=== PATIENT | male | born 1930 | race Caucasian/White ===

== ENCOUNTER 2017-05-22 13:21 | Emergency (ER) | payer MEDICARE, OTHER ==
--- NOTE | 2017-05-22 15:58 | EDM.PDOC ---
ED HPI GENERAL MEDICAL PROBLEM - General Chief Complaint: Respiratory Problem Stated Complaint: SOB Time Seen by Provider: 05/22/17 15:00 Source of Information: Reports: Patient, Family (Son and daughter in law) - History of Present Illness INITIAL COMMENTS - FREE TEXT/NARRATIVE: Sahil is an 87yo male brought in by his son and [id number], ambulatory for complaints of sensation of shortness of breath. Reports are that he has a sensation that he is SOB, comes on suddenly. This will last seconds to minutes, sometimes an hour then resolve spontaneously. He feels if he puts his hand over his mouth he can "get his air" better. Son reports this is worsening and becoming "compulsive", that his father seems to have a panic type sensation and will then demand to go to the hospital. Patient tells me he does feel a sensation that if he were to burp he may feel relief of this sensation. He denies heartburn or GERD, no hx of PUD. Does admit that he is a worrier. He denies n/v/d, no changes in stool but does admit that stools are dark in color "for a long time now"; no hematochezia noted. Appetite has been down and reportedly poor by family for a few months. Patient denies f/c/s, food tastes the same he just doesn't feel hungry. Family reports a slow downward progression of weakness and immobility, that patient sits on his couch most of his day and seems to have little to no energy. Family has noted slow downward progression with patient's memory also, short term memory is very poor. Patient has been seen for this sensation of SOB on 3 occasions in the past few weeks. Once with PCP, Dr. Flood in [place], once with Dr. Dodd and once by Deloris Venegas PA-C; family reports normal lab and chest xray evaluation. Patient lives at home with his ; family reports "he is a lot of work" for his . Onset: Gradual Duration: Week(s): (3) Location: Reports: Chest, Abdomen Quality: Reports: Other (sensation of SOB and sensation that if he could burp this would resolve) Improves with: Reports: None Worsens with: Reports: None Associated Symptoms: Reports: Loss of Appetite (x 3-4 weeks), Shortness of Breath (sensation), Weakness. Denies: Chest Pain, Cough, Fever/Chills, Headaches, Nausea/Vomiting - Related Data Allergies Allergy/AdvReac Type Severity Reaction Status Date / Time No Known Allergies Allergy Verified 05/22/17 13:37 Home Meds: Home Meds Fexofenadine/Pseudoephedrine [Deborah-D 12 Hour Tablet] 1 tab PO DAILY 05/22/17 [History] Fluticasone Propionate [Flonase] 0 gm NASBOTH DAILY 05/22/17 [History] Umeclidinium Brm/Vilanterol Tr [Anoro Ellipta 62.5-25 MCG] 1 puff IH DAILY 05/22 [History] Social & Family History - Tobacco Use Smoking Status *Q: Never Smoker - Recreational Drug Use Recreational Drug Use: No ED ROS GENERAL - Review of Systems Review Of Systems: See Below Constitutional: Reports: Weakness (reported by family), Fatigue (reported by family), Decreased Appetite (reported by family). Denies: Fever, Chills, Malaise HEENT: Reports: No Symptoms Respiratory: Reports: Shortness of Breath (sensation; O2 sats is 100% on RA). Denies: Wheezing, Pleuritic Chest Pain, Cough, Sputum, Hemoptysis Cardiovascular: Reports: No Symptoms. Denies: Chest Pain, Dyspnea on Exertion, Lightheadedness, Palpitations, Syncope GI/Abdominal: Reports: Abdominal Pain (sensation that if he presses on his abdomen near umbilicus that this SOB sensation resolved; does not really call this abdominal pain). Denies: Constipation, Diarrhea, Nausea : Reports: No Symptoms Musculoskeletal: Denies: Back Pain Neurological: Denies: Confusion, Dizziness, Headache Psychiatric: Reports: Anxiety (? anxiety with regard to ongoing SOB sensation) ED EXAM, GENERAL - Physical Exam Exam: See Below Exam Limited By: No Limitations General Appearance: Alert, WD/WN, No Apparent Distress, Other (Initially patient does not respond to my questioning and family is answering questions; he then becomes more amendable to conversation and joins in, answers all questions appropriately) Eye Exam: Bilateral Eye: EOMI, PERRL Ears: Normal External Exam, Other ([place]) Nose: Normal Inspection Throat/Mouth: Normal Inspection, Normal Lips, Normal Voice, No Airway Compromise Head: Atraumatic, Normocephalic Neck: Normal Inspection Respiratory/Chest: No Respiratory Distress, Lungs Clear, Normal Breath Sounds, No Accessory Muscle Use Cardiovascular: Normal Peripheral Pulses, Regular Rate, Rhythm, No Edema, No Murmur Peripheral Pulses: 2+: Dorsalis Pedis (L), Dorsalis Pedis (R) GI/Abdominal: Normal Bowel Sounds, Soft, Non-Tender, No Organomegaly (Male) Exam: Deferred Rectal (Males) Exam: Deferred Back Exam: Normal Inspection Extremities: Normal Inspection, No Pedal Edema, Normal Capillary Refill Neurological: Alert, Oriented, CN II-XII Intact, Normal Cognition Psychiatric: Normal Affect, Normal Mood Skin Exam: Warm, Dry, Intact Course - Vital Signs Last Recorded V/S: Last Vital Signs Temp 97.4 F 05/22/17 13:31 Pulse 91 05/22/17 13:31 Resp 16 05/22/17 13:31 BP Pulse Ox 100 05/22/17 13:31 - Orders/Labs/Meds Labs: Laboratory Tests 05/22/17 05/22/17 05/22/17 Range/Units 16:10 16:10 16:10 WBC 6.46 (4.23-9.07) K/mm3 RBC 5.11 (4.63-6.08) M/mm3 Hgb 16.1 (13.7-17.5) gm/L Hct 46.6 (40.1-51.0) % MCV 91.2 (79.0-92.2) fl MCH 31.5 (25.7-32.2) pg MCHC 34.5 (32.2-35.5) g/dl RDW Std Deviation 44.8 H (35.1-43.9) fL Plt Count 246 (163-337) K/mm3 MPV 10.6 (9.4-12.3) fl Neut % (Auto) 62.0 (34.0-67.9) % Lymph % (Auto) 25.7 (21.8-53.1) % Barry % (Auto) 10.8 (5.3-12.2) % Eos % (Auto) 0.9 (0.8-7.0) Baso % (Auto) 0.3 (0.1-1.2) % Neut # (Auto) 4.00 (1.78-5.38) K/mm3 Lymph # (Auto) 1.66 (1.32-3.57) K/mm3 Barry # (Auto) 0.70 (0.30-0.82) K/mm3 Eos # (Auto) 0.06 (0.04-0.54) K/mm3 Baso # (Auto) 0.02 (0.01-0.08) K/mm3 D-Dimer, Quantitative 0.40 (0.19-0.59) mg/L Sodium 140 (136-145) mEq/L Potassium 4.0 (3.5-5.1) mEq/L Chloride 105 (98-107) mEq/L Carbon Dioxide 25 (21-32) mEq/L Anion Gap 14.0 (5-15) BUN 19 H (7-18) mg/dL Creatinine 1.2 (0.7-1.3) mg/dL Est Cr Clr Drug Dosing 41.11 mL/min Estimated GFR (MDRD) 57 (>60) mL/min BUN/Creatinine Ratio 15.8 (14-18) Glucose 101 (83-115) mg/dL Calcium 9.6 (8.5-10.1) mg/dL Magnesium 2.0 (1.8-2.4) mg/dl Total Bilirubin 0.9 (0.2-1.0) mg/dL AST 22 (15-37) U/L ALT 23 (16-63) U/L Alkaline Phosphatase 69 (46-116) U/L C-Reactive Protein < 0.2 (<1.0) mg/dL Total Protein 7.2 (6.4-8.2) g/dl Albumin 3.5 (3.4-5.0) g/dl Globulin 3.7 gm/dL Albumin/Globulin Ratio 1.0 (1-2) H. pylori IgG Antibody (NEGATIVE) 05/22/17 Range/Units 16:10 WBC (4.23-9.07) K/mm3 RBC (4.63-6.08) M/mm3 Hgb (13.7-17.5) gm/L Hct (40.1-51.0) % MCV (79.0-92.2) fl MCH (25.7-32.2) pg MCHC (32.2-35.5) g/dl RDW Std Deviation (35.1-43.9) fL Plt Count (163-337) K/mm3 MPV (9.4-12.3) fl Neut % (Auto) (34.0-67.9) % Lymph % (Auto) (21.8-53.1) % Barry % (Auto) (5.3-12.2) % Eos % (Auto) (0.8-7.0) Baso % (Auto) (0.1-1.2) % Neut # (Auto) (1.78-5.38) K/mm3 Lymph # (Auto) (1.32-3.57) K/mm3 Barry # (Auto) (0.30-0.82) K/mm3 Eos # (Auto) (0.04-0.54) K/mm3 Baso # (Auto) (0.01-0.08) K/mm3 D-Dimer, Quantitative (0.19-0.59) mg/L Sodium (136-145) mEq/L Potassium (3.5-5.1) mEq/L Chloride (98-107) mEq/L Carbon Dioxide (21-32) mEq/L Anion Gap (5-15) BUN (7-18) mg/dL Creatinine (0.7-1.3) mg/dL Est Cr Clr Drug Dosing mL/min Estimated GFR (MDRD) (>60) mL/min BUN/Creatinine Ratio (14-18) Glucose (83-115) mg/dL Calcium (8.5-10.1) mg/dL Magnesium (1.8-2.4) mg/dl Total Bilirubin (0.2-1.0) mg/dL AST (15-37) U/L ALT (16-63) U/L Alkaline Phosphatase (46-116) U/L C-Reactive Protein (<1.0) mg/dL Total Protein (6.4-8.2) g/dl Albumin (3.4-5.0) g/dl Globulin gm/dL Albumin/Globulin Ratio (1-2) H. pylori IgG Antibody Positive H (NEGATIVE) Meds: Medications Discontinued Medications Generic Name Dose Route Start Last Admin Trade Name Freq PRN Reason Stop Dose Admin Amoxicillin 1,000 mg 05/22/17 18:06 05/22/17 18:21 Amoxil PO 05/22/17 18:07 1,000 mg ONETIME ONE Administration Clarithromycin 500 mg 05/22/17 18:10 05/22/17 18:21 Biaxin PO 05/22/17 18:11 500 mg NOW STA Administration Pantoprazole Sodium 40 mg 05/22/17 18:03 Protonix Iv IVPUSH 05/22/17 18:04 ONETIME ONE Pantoprazole Sodium 40 mg 05/22/17 18:30 05/22/17 18:21 Protonix PO 40 mg STAT MEET Administration Pantoprazole Sodium Confirm 05/22/17 18:22 05/22/17 18:22 Protonix Administered 05/22/17 18:23 Not Given Dose 40 mg .ROUTE .[facility] - Re-Assessments/Exams Free Text/Narrative Re-Assessment/Exam: 05/22/17 22:00 Labs reviewed with family as noted above; H.Pylori + in serum. Reviewed that I could confirm this with stool but based on his symptoms I would like to treat for h.pylori- family and patient are in agreement. Amoxicillin, clarithromycin and protonix given PO prior to discharge. Will continue these for 10 days--see rx given to patient at [place]. Reviewed CT results with patient and family; gallstones present, no evidence of inflammation or acute concerns, however could further evaluation with PCP as this could potentially cause decreased appetite symptoms. Will defer to PCP. Family was pushing for patient admission. Reviewed with family normal VS, essentially normal labs, no criteria for admission at this time. Offered social work consult here or as outpatient to help family work through process of further evaluation and assistance with needs at home. Recommend he follow up with PCP within a few days of discharge for repeat exam and for family to discuss concerns with PCP in [place]. Family is in agreement. Departure - Departure Time of Disposition: 18:31 Disposition: Home, Self-Care 01 Condition: Fair Clinical Impression: Helicobacter pylori (H. pylori) infection, Anxiety, Gallstones - Discharge Information Instructions: Panic Attacks, [id number], Biliary Colic, Helicobacter Pylori Antibodies Test Referrals: PCP,Not In Area [Primary Care Provider] - Forms: ED Department Discharge Additional Instructions: Take all medications as prescribed -Amoxicillin twice daily x 10 days -Clarithromycin twice daily x 10 days -Omeprazole twice daily x 10 days then once daily for one month Push fluids; bland foods. Discuss anxiety treatment with PCP at follow up visit. Discuss memory loss, recent memory, with PCP at follow up visit. Recommend follow up with PCP within one week of discharge.
--- NOTE | 2017-05-22 17:28 | CT ---
CT chest Technique: Multiple axial sections through the chest were obtained. Intravenous contrast not utilized. Comparison: No prior study. Findings: Mediastinum and hilar regions show no adenopathy or mass. Atherosclerotic calcification is seen within the aorta and branch vessels. No aneurysm is seen within the thoracic aorta. Heart size is is within normal limits. No pericardial thickening is seen. 2 slight nodular densities are noted within the right upper lung measuring around 1 cm in size. Slight parenchymal density within the right lung base is seen most likely due to scarring. Small nodule is noted within the left lung base measuring 3.5 mm. Bone window settings shows scattered degenerative change throughout the spine. Impression: 1. Slight nodular densities within the chest. Given the patient's age these are likely incidental. Minimal scarring within the right lung base is seen. 2. Nothing acute is appreciated on noncontrast CT study of the chest. Diagnostic code #2 CT abdomen and pelvis Technique: Multiple axial sections were obtained from above the dome of the diaphragm inferiorly through the pubic symphysis. Intravenous and oral contrast not utilized. Comparison: No previous abdominal or pelvic exam. Findings: Liver shows no focal abnormality. Gallstones are seen within the gallbladder. Spleen appears within normal limits. Cyst is identified within the left kidney measuring 4.4 cm in size. Cyst is seen more superiorly within the left kidney measuring 3.1 cm in size. Pancreas is within normal limits. Aorta shows atherosclerotic change which continues iliac vessels. No aneurysm is seen. No retroperitoneal adenopathy or mesenteric abnormalities are seen. No pelvic mass or adenopathy is seen. Bone window settings were reviewed which shows scattered degenerative change throughout the spine. Impression: 1. Gallstones and cysts within the left kidney. 2. Incidental degenerative change within the spine. 3. Nothing acute is seen on noncontrast CT study of the abdomen and pelvis. Diagnostic code #2
[2017-05-22] MEDS ORDERED: Pantoprazole 40 MG Vial IVPUSH ONE (18:03)
[2017-05-22] MEDS ORDERED: Amoxicillin 500 MG Cap PO ONE (18:06)
[2017-05-22] MEDS ORDERED: Pantoprazole 40 MG Tab.CR ONE (18:22)
[2017-05-22] MEDS ORDERED: Pantoprazole 40 MG Tab.CR PO SCH (18:30)
== END 2017-05-22 18:44 | disposition home or self-care (01) ==
LOC: JD.ED 13:21
DX: A04.8 Other specified bacterial intestinal infections (principal); K80.80 Other cholelithiasis without obstruction; F41.9 Anxiety disorder, unspecified
CPT/HCPCS: 36415; 71250; 74176; 80053; 83735; 85025; 85379; 86140; 86677; 99285; A9270; 99284